=== PATIENT | female | born 1950 | race Caucasian/White ===

== ENCOUNTER → 2020-05-08 | Outpatient (CLI) | payer MEDICARE ==
--- NOTE | 2020-05-08 13:32 | RAD ---
EXAM: CHEST PA LATERAL INDICATION: Reason: COUGH X 3 MONTHS, SHORTNESS OF BREATH HX QUIT SMOKING X 30 PLUS Y / Spl. Instructions: / History: . TECHNIQUE: PA and lateral views COMPARISON: None FINDINGS: The heart size is normal. The great vessels appear unremarkable. There is no hilar or mediastinal mass. The lungs are clear. There is no pleural effusion or pneumothorax. There are no significant osseous abnormalities. IMPRESSION: No active cardiopulmonary disease. Electronically signed by: Mercedes Yusuf MD (05/08/2020 1:29 PM) [id number]
== END | disposition home or self-care (01) ==
LOC: PMG 09:57
PROVIDERS: ATTEND Family Medicine
DX: R05 Cough (principal); R06.02 Shortness of breath; Z87.891 Personal history of nicotine dependence
CPT/HCPCS: 71046

== ENCOUNTER 2020-05-12 16:51 | Emergency (ER) | payer MEDICARE ==
[~2020-05-12] VITALS: Ht 157.5 cm; Wt 70.0 kg
[2020-05-12 16:59] VITALS: BP 153/76
--- NOTE | 2020-05-12 17:00 | PHYS DOC ---
Past History Additional Past Medical Histor: Rheumatoid arthritis Adult General HPI HPI Patient is a 70-year-old female who presents for right middle finger injury. Injury happened just prior to arrival, patient reports holding grocery bags and right hand when she felt "my vein or tendon or something" move out of place. Nothing has been taken an attempt to make better. Certain movements make coarse but upon ED presentation, patient relatively asymptomatic. Patient describes focal pain to proximal portion of right MCP. Patient reports having history of known rheumatoid arthritis with classical findings and is pending initial appointment with health and safety inspector to establish care. Her PCP has her on steroids currently. She is on nothing for pain. She otherwise has no concerning past medical issues, denies taking any daily medications Review of Systems Review of Systems Fourteen body systems of review of systems have been reviewed. See HPI for pertinent positives and negative responses, other lacey all other systems are negative, non-pertinent or non-contributory Physical Exam Physical Exam Constitutional: Well developed, well nourished, no acute distress, non-toxic appearance. HENT: Normocephalic, atraumatic, bilateral external ears normal, oropharynx moist, no oral exudates, nose normal. Eyes: PERRLA, EOMI, conjunctiva normal, no discharge. Neck: Normal range of motion, no tenderness, supple, no stridor. Cardiovascular:Heart rate regular rhythm Lungs & Thorax: Bilateral chest rise without any noted respiratory distress Abdomen: Soft, no tenderness, no masses, no pulsatile masses. Nonsurgical abdomen, no peritoneal signs Skin: Warm, dry, no erythema, no rash. Back: No tenderness Extremities: No tenderness, no cyanosis, no clubbing, no edema. Classical rheumatoid arthritis findings of bilateral hands. Hand physical exam findings below documented is bilateral unless otherwise noted Index F: FDS, FDP, extension intact with PROM against resistance. No pain on movement. RDN/UDN intact. CR < 2s. Soft compartment. [place]-neck deformity present on index finger of right hand Middle F: FDS, FDP, extension intact with PROM against resistance. No pain on movement. RDN/UDN intact. CR < 2s. Soft compartment. No palpable abnormalities Ring F: FDS, FDP, extension intact with PROM against resistance. No pain on movement. RDN/UDN intact. CR < 2s. Soft compartment. Short F: FDS, FDP, extension intact with PROM against resistance. No pain on movement. RDN/UDN intact. CR < 2s. Soft compartment. Thumb: FPL, EPL, EPB, APL intact per routine. RDN/UDN intact per routine. CR < 2s. Compartments soft. Neurologic: Alert and oriented X 3, normal motor function, normal sensory function, no focal deficits noted. Psychologic: Affect normal, judgement normal, mood normal. EKG EKG [] Radiology/Procedures Radiology/Procedures [] Course & Med Decision Making Course & Med Decision Making Patient seen and examined by myself on immediate ED arrival Vital signs stable, history and physical exam unremarkable for emergent pathology No acute indication for further work-up such as laboratory or imaging analysis Given comprehensive history and physical exam, I have low suspicion for any conc erning pathology of her right middle finger. Discussed little utility in obtaining lab work or x-ray or CT. Discussed possibilities of ultrasounding to determine if tendons were intact but I am not qualified for this and disclose this to patient. Also discussed utility of MRI if symptoms ongoing index closed we did not perform these on the premises. ED course reviewed with patient, given that she is hemodynamically stable and has been asymptomatic since arrival, supportive care with close PCP follow-up a nd health and safety inspector follow-up advised Recommended patient continue previously prescribed steroids for rheumatoid arthritis, I offered prescription for meloxicam to be used in short-term for pain control and anti-inflammatory properties Strict return precautions discussed at length with good understanding by patient, all questions and concerns addressed prior to departure Patient follow-up with PCP in upcoming 3 to 6 days Sancho Disclaimer Dragon Disclaimer This electronic medical record was generated, in whole or in part, using a voice recognition dictation system. Departure Departure: Impression: Primary Impression: Pain of right middle finger Disposition: HOME/RESIDENCE PRIOR TO ADM Condition: STABLE Referrals: YADI LINK MD (PCP) Patient Instructions: Meloxicam tablets, Rheumatoid Arthritis Scripts Meloxicam (MELOXICAM) 7.5 Mg Tablet 1 TAB PO DAILY for pain for 14 Days, #14 TAB 0 Refills Prov: AMANDA CRAIN DO 05/12/20 Justification of Admission: Justification of Admission: Justification of Admission Dx: N/A AMANDA CRAIN DO May 12, 2020 17:00
[2020-05-12] MEDS ORDERED: MELO7.5T29 PO (17:38)
== END 2020-05-12 17:39 | disposition home or self-care (01) ==
LOC: ER 16:51
DX: M79.644 Pain in right finger(s) (principal); M06.9 Rheumatoid arthritis, unspecified
CPT/HCPCS: 99283

== ENCOUNTER 2021-08-27 11:27 | Emergency (ER) | payer MEDICARE ==
[~2021-08-27] VITALS: Ht 170.2 cm; Wt 77.0 kg
[~2021-08-27 11:27] MED LIST: MELO7.5T29 PO
[2021-08-27 11:45] VITALS: BP 163/72
[2021-08-27] MEDS ORDERED: FLUORESCEIN 1MG EYE STRIP. ONE (12:44)
[2021-08-27] MEDS ORDERED: TETRACAINE 0.5% OPHTH SOLUTION 4ML BOTTLE. ONE (12:44)
[2021-08-27] MEDS ORDERED: FLUORESCEIN 1MG EYE STRIP. OD ONE (12:45)
[2021-08-27] MEDS ORDERED: TETRACAINE 0.5% OPHTH SOLUTION 4ML BOTTLE. OD ONE (12:45)
[2021-08-27] MEDS ORDERED: DIPH,PERTUSS(ACELL),TET VAC/PF 0.5 ML SYRINGE. VAX IM ONE (12:45)
[2021-08-27] MEDS ORDERED: POLYMYXIN/TRIMETHOPRIM OPHTH SOLUTION 10ML BOTTLE. OD ONE (13:15)
[2021-08-27] MEDS ORDERED: EYE-STREAM OPTH SOLUTION 30 ML BOTTLE. OD ONE (13:15)
[2021-08-27] MEDS ORDERED: POLY10DR EACHEYE (13:22)
--- NOTE | 2021-08-27 13:22 | PHYS DOC ---
Past History Past Medical History: Other Additional Past Medical Histor: Rheumatoid arthritis (DEREJE MELO APRN) Past Surgical History: No Surgical History (DEREJE MELO APRN) Alcohol Use: None (DEREJE MELO APRN) Adult General Chief Complaint Chief Complaint: EYE PROBLEMS HPI HPI Patient is a 71-year-old female presents to the emergency department complaining of right eye irritation she noticed just prior to arrival to the emergency department, patient reports she was cleaning her house that she believes something may have gotten it however she states she does not feel as if there is anything in her eye at this time. Patient reports she started rubbing the outside corner of her right eye and noticed it was starting to become tearful and looked in the mirror and noticed it was becoming swollen and red, patient denies visual disturbances, denies blurriness or decreased vision. Denies eye pain. Denies headaches. Denies nasal congestion or drainage. Patient denies recent fever or chills, denies recent illnesses. Patient reports she wears glasses but does not wear contacts. Patient denies other physical complaints or physical concerns. (DEREJE MELO APRN) Review of Systems Review of Systems 14 body systems of review of systems have been reviewed. See HPI for pertinent positives and negative responses, otherwise all other systems are negative, nonpertinent or noncontributory. Constitutional: Negative except as outlined in HPI above. Skin: Negative except as outlined in HPI above. Eyes: Negative except as outlined in HPI above. HENT: Negative except as outlined in HPI above. Respiratory: Negative except as outlined in HPI above. Cardiovascular: Negative except as outlined in HPI above. GI: Negative except as outlined in HPI above. : Negative except as outlined in HPI above. Musculoskeletal: Negative except as outlined in HPI above. Integument: Negative except as outlined in HPI above. Neurologic: Negative except as outlined in HPI above. Endocrine: Negative except as outlined in HPI above. Lymphatic: Negative except as outlined in HPI above. Psychiatric: Negative except as outlined in HPI above. (DEREJE MELO APRN) Current Medications Current Medications Current Medications Medications (Trade) Dose Ordered Sig/Tomás Start Time Stop Time Status Last Admin Dose Admin Diphtheria/ Pertussis/Tetanus Vacc (ADACEL TDap SYRINGE) 0.5 ml ONCE ONCE 08/27/21 12:45 08/27/21 12:46 DC 08/27/21 12:49 0.5 ML Eye Irrigation Solution (Eye-Stream) 30 ml 1X ONCE 08/27/21 13:15 08/27/21 13:16 UNV Fluorescein Sodium (Ful-Edith 1mg) 1 strip STK-MED ONCE 08/27/21 12:44 08/27/21 12:44 DC Polymyxin/ Trimethoprim Sulfate (Polytrim) 1 drop 1X ONCE 08/27/21 13:15 08/27/21 13:16 UNV Tetracaine HCl (Tetracaine) 40 drop STK-MED ONCE 08/27/21 12:44 08/27/21 12:44 DC (DEREJE MELO APRN) Allergies Allergies Allergies Coded Allergies Type Severity Reaction Last Updated Verified No Known Drug Allergies 05/12/20 No (DEREJE MELO APRN) Physical Exam Physical Exam Constitutional: Well developed, well nourished, no acute distress, non-toxic appearance. 71-year-old female in no apparent distress. HENT: Normocephalic, atraumatic. Eyes: PERRLA, EOMI, no discharge, conjunctiva normal of the left eye, right eye conjunctival swelling with light pink erythema of the lateral canthus upper and lower eyelid with chemosis, scant tearing, no purulence appreciated, visual acuity: OS 20/30, OD 20/40, OU 20/40. This is done with corrected lenses. Fluorescein eye exam negative for abrasions or other abnormalities. Positive red light reflex. Neck: Normal range of motion, no stridor. Cardiovascular: No cyanosis appreciated, distal cap refill less than 2 seconds. Lungs & Thorax: Patient is in no respiratory distress, no audible adventitious lung sounds appreciated. Abdomen: Nontender, no abnormalities noted. Skin: Warm, dry, no erythema, no rash. Back: No tenderness, no deformities. Extremities: No tenderness, no cyanosis, no clubbing, ROM intact, no edema. Neurologic: Alert and oriented X 3, normal motor function, normal sensory function, no focal deficits noted. Psychologic: Affect normal, judgement normal, mood normal. (DEREJE MELO APRN) Current Patient Data Vital Signs Vital Signs Date Time Temp Pulse Resp B/P (MAP) Pulse Ox O2 Delivery O2 Flow Rate FiO2 08/27/21 11:45 98.2 102 18 163/72 (102) 97 Room Air (DEREJE MELO APRN) EKG EKG [] (DEREJE MELO APRN) Radiology/Procedures Radiology/Procedures [] (DEREJE MELO APRN) Heart Score C/O Chest Pain: No Risk Factors: Risk Factors: DM, Current or recent (<one month) smoker, HTN, HLP, family history of CAD, obesity. Risk Scores: Risk Factors: DM, Current or recent (<one month) smoker, HTN, HLP, family history of CAD, obesity. (DEREJE MELO APRN) Course & Med Decision Making Course & Med Decision Making Pertinent Labs and Imaging studies reviewed. (See chart for details) 71-year-old female, vital signs reviewed, presents emergency department concerning irritation of the right eye. Physical examination consistent with conjunctivitis, most likely an irritant or allergen source, less likely viral and unlikely bacterial. This is unlikely a scleritis or uveitis or episcleritis, there is no eye pain, there is no vision change or disturbance. Will bring patient's tetanus immunization up-to-date today in the emergency department with Adacel/Tdap. Discussed with patient will start on Polytrim eyedrops 1 drop to the right eye every 3 hours while awake for the next 7 days. Strict follow-up with ophthalmology tomorrow. Strict return to ER for eye pain, decreased vision, or other concerns. Patient is amenable to ED discharge planning. Discussed with the patient all findings and diagnostic testing as well as the n eed to follow-up with their primary care provider for further evaluation and treatment or return to the ED if any new or worsening symptoms. Strict return precautions were also discussed at length, the patient voiced understanding and agreement with the discharge planning. The patient was nontoxic in appearance, in no apparent distress, and hemodynamically stable at the time of disposition. (DEREJE MELO APRN) Course & Med Decision Making I was the Attending physician on the above date of service of this patient. This patient was evaluated, examined, treated, and dispositioned from the emergency department by the mid-level practitioner. Although I was working at the time , no assistance was requested. Electronically signed, Amanda Crain DO (AMANDA CRAIN DO) Sancho Disclaimer Dragon Disclaimer This electronic medical record was generated, in whole or in part, using a voice recognition dictation system. (DEREJE MELO APRN) Departure Departure: Impression: Primary Impression: Conjunctivitis Additional Impression: Need for Tdap vaccination Disposition: HOME / SELF CARE / HOMELESS Condition: GOOD Referrals: YADI LINK MD (PCP) SHIRA ALMANZA DO Patient Instructions: Allergic Conjunctivitis, Conjunctivitis (Viral and Bacterial) Additional Instructions: You were seen today in the emergency department for irritation to your right eye. Your physical examination is concerning for an allergic conjunctivitis. I have started you on antibiotic eyedrops, please instill 1 drop every 3 hours while awake for the next 7 days. Please follow-up with an captain/check airman tomorrow, return immediately to the emergency department for increased eye pain, decreased vision. I have given information for the captain/check airman Dr. Almanza, however you may choose any captain/check airman you like. Thank you for visiting our Emergency Department. It was a pleasure taking care of you today in the emergency department and we appreciate you trusting us with your care. If any additional problems come up don't hesitate to return to visit us. Please follow up with your primary care provider so they can plan additional care if needed and know about the problem that you had. If symptoms worsen come back to the Emergency Department. Any concerning symptoms that start such as chest pain, shortness of air, weakness or numbness on one side of the body, running high fevers or any other concerning symptoms return to the ER. Scripts Polymyxin B Sulf/Trimethoprim (POLYTRIM EYE DROPS) 10 Ml Drops 1 DROP EACHEYE Q6HRS for conjunctivitis for 7 Days, #10 ML 0 Refills Prov: DEREJE MELO Arya DOMINGUEZ 08/27/21 Problem Qualifiers Primary Impression: Conjunctivitis Conjunctivitis type: acute Acute conjunctivitis type: unspecified Lateral ity: right Qualified Codes: H10.31 - Unspecified acute conjunctivitis, right eye KAMERONDEREJE Koenig APRN Aug 27, 2021 13:22 AMANDA CRAIN DO Aug 28, 2021 07:04
== END 2021-08-27 13:35 | disposition home or self-care (01) ==
LOC: ER 11:27
DX: H10.9 Unspecified conjunctivitis (principal); M06.9 Rheumatoid arthritis, unspecified
CPT/HCPCS: 90471; 90715; 99284